=== PATIENT | female | born 1960 | race Caucasian/White ===

== ENCOUNTER 2020-01-09 14:00 | Outpatient (CLI) | payer OTHER, SELFPAY ==
--- NOTE | ~2020-01-09 | MM_ITS ---
EXAMINATION: MM screening [facility] w [facility] HISTORY: Screening mammogram TECHNIQUE: Craniocaudal and mediolateral oblique 3-D tomosynthesis images were obtained and synthetic 2-D images were generated. CAD analysis was submitted and interpreted. COMPARISON: 12/04/2018, 11/17/2017, 10/25/2016 bilateral digital screening mammogram examinations BREAST PARENCHYMAL COMPOSITION: There are scattered areas of fibroglandular density. FINDINGS: There is no evidence of suspicious mass, calcification, or architectural distortion to sugg est malignancy in either breast. There has been no suspicious interval change. IMPRESSION: 1. No mammographic evidence of malignancy. 2. Recommend routine screening mammography in one year. BI-RADS Category 1: Negative Reviewed, dictated and finalized at location A.
== END 2020-01-09 14:01 | disposition home or self-care (01) ==
LOC: ANHIMG 14:03
PROVIDERS: PCP Family Medicine; Visit Provider Family Medicine
DX: Z12.31 Encounter for screening mammogram for malignant neoplasm of breast (principal)
CPT/HCPCS: 77063; 77067

== ENCOUNTER 2021-02-12 08:26 | Outpatient (CLI) | payer OTHER, SELFPAY ==
--- NOTE | ~2021-02-12 | MM_ITS ---
EXAMINATION: MM screening [facility] BI w baltazar HISTORY: Screening mammogram TECHNIQUE: Craniocaudal and mediolateral oblique 3-D tomosynthesis images were obtained and synthetic 2-D images were generated. CAD analysis was submitted and interpreted. COMPARISON: 01/09/2020, 12/04/2018, 11/17/2017 BREAST PARENCHYMAL COMPOSITION: There are scattered areas of fibroglandular density. FINDINGS: There is no evidence of suspicious mass, calcification, or architectural distortion to sugg est malignancy in either breast. There has been no suspicious interval change. IMPRESSION: 1. No mammographic evidence of malignancy. 2. Recommend routine screening mammography in one year. BI-RADS Category 1: Negative Reviewed, dictated and finalized at location A.
== END 2021-02-12 08:27 | disposition home or self-care (01) ==
LOC: ANHIMG 08:29
PROVIDERS: PCP Family Medicine; Visit Provider Family Medicine
DX: Z12.31 Encounter for screening mammogram for malignant neoplasm of breast (principal)
CPT/HCPCS: 77063; 77067

== ENCOUNTER 2022-05-10 10:04 | Outpatient (CLI) | payer OTHER, SELFPAY ==
--- NOTE | ~2022-05-10 | MM_ITS ---
EXAMINATION: MM screening [facility] BI w baltazar HISTORY: Screening mammogram TECHNIQUE: Craniocaudal and mediolateral oblique 3-D tomosynthesis images were obtained and synthetic 2-D images were generated. CAD analysis was submitted and interpreted. COMPARISON: 02/12/2021, 01/09/2020, 12/04/2018 BREAST PARENCHYMAL COMPOSITION: There are scattered areas of fibroglandular density. FINDINGS: There is no suspicious mass, calcification, or architectural distortion to suggest malignan cy in either breast. There has been no suspicious interval change. IMPRESSION: 1. No mammographic evidence of malignancy. 2. Recommend routine screening mammography in one year. BI-RADS Category 1: Negative Reviewed, dictated and finalized at location A.
== END 2022-05-10 10:05 | disposition home or self-care (01) ==
LOC: ANHIMG 10:06
PROVIDERS: PCP Family Medicine; Visit Provider Physician Assistant
DX: Z12.31 Encounter for screening mammogram for malignant neoplasm of breast (principal)
CPT/HCPCS: 77063; 77067

== ENCOUNTER 2022-07-23 00:42 | Day surgery (SDC) | payer OTHER, SELFPAY ==
[2022-07-16 14:05] VITALS: BMI 28.9
[2022-07-23 09:57] VITALS: BP 147/77; PULSE 87; RESP 16; TEMP 36; O2SAT 100
[2022-07-23] MEDS: LACTATED RINGERS 1,000 ML 150 ML IV CONT (10:00)
--- NOTE | 2022-07-23 10:39 | PM.HPGS ---
History of Present Illness History of Present Illness Consent: Risks, benefits, and alternatives have been discussed and questions answered. Patient agrees to proceed with procedure. Chief complaint: Positive Cologuard Narrative: Elaine Patterson is a 61 year old female Presents for screening colonoscopy. Patient's current weight appetite bowel movements are normal. Patient denies abdominal pain. She has had bleeding. Family history noncontributory. Recent Cologuard test found to be positive. For this reason patient referred for screening colonoscopy. Previous colonoscopy 10 years ago was unremarkable. Review of Systems Review of Systems: Review of systems noncontributory. [facility] Past Medical History Medical History Mild intermittent asthma, uncomplicated Photodermatitis Family History Family History Mother Family history of thyroid disease Sibling Depression Father Family history of rheumatoid arthritis, Onset Age: 79 Grandparent Cerebrovascular accident Family history of lung cancer Social History Social History (Updated 06/17/22 @ 10:18 by Paris Ware CMA) Smoking status: Never smoker Alcohol intake: current Drinks per week: 5 Substance use: never Substance use type: does not use Living arrangements: with family Spiritual care concerns: No Meds Home Medications and Allergies Home Medications Medication Instructions Recorded Confirmed Type cetirizine 10 mg capsule (Zyrtec) 10 mg PO DAILY PRN Pain 06/10/21 07/23/22 History estradiol 0.5 mg tablet See Rx Instructions .Route 08/12/21 07/23/22 Rx .COMPLEX #90 tabs levothyroxine 150 mcg tablet See Rx Instructions .Route 10/21/21 07/23/22 Rx (Synthroid) .COMPLEX #90 tabs meloxicam 15 mg tablet See Rx Instructions .Route 05/04/22 07/23/22 Rx .COMPLEX #90 tabs Allergies Allergy/AdvReac Type Severity Reaction Status Date / Time cat dander Allergy Unknown Sneezing Verified 07/23/22 09:55 Sulfa (Sulfonamide Allergy Unknown reaction Verified 07/23/22 09:55 Antibiotics) Vital Signs Vital Signs - 24 hr 07/23/22 09:57 Temperature 96.8 F L Pulse Rate 87 Respiratory Rate 16 Blood Pressure 147/77 H Pulse Oximetry 100 Oxygen Delivery Room Air Exam Narrative: Physical exam reveals patient to be alert. Vital signs stable. HEENT exam is unremarkable. Patient is anicteric. Lungs are clear to auscultation and percussion. Heart is without murmur or extra sounds. Abdomen bowel sounds are present soft nontender with no organomegaly. Digital external rectal exam is normal. Assessment and Plan Assessment and plan (1) Positive colorectal cancer screening using Cologuard test: Code(s): R19.5 - Other fecal abnormalities Status: Acute Assessment and Plan: Patient presents for screening colonoscopy because of positive Cologuard test. Further recommendations may be given after endoscopy.
[2022-07-23 11:05] VITALS: BP 109/63; PULSE 79; RESP 19; O2SAT 98
[2022-07-23 11:15] VITALS: BP 107/69; PULSE 84; RESP 24; O2SAT 99
[2022-07-23 11:25] VITALS: BP 120/73; PULSE 82; RESP 20; O2SAT 99
== END 2022-07-23 11:30 | disposition home or self-care (01) ==
PROVIDERS: PCP Family Medicine; Visit Provider Internal Medicine Gastroenterology
PROC: 0DJD8ZZ Inspection of Lower Intestinal Tract, Via Natural or Artificial Opening Endoscopic (ICD-10-PCS; CPT 45378; principal; 2022-07-23 11:00)
DX: R19.5 Other fecal abnormalities (principal)
CPT/HCPCS: 45378; J2704; J7120

== ENCOUNTER → 2023-07-20 11:30 | Outpatient (CLI) | payer OTHER, SELFPAY ==
--- NOTE | ~2023-07-20 | MM_ITS ---
EXAMINATION: MM screening [facility] w [facility] HISTORY: Screening TECHNIQUE: Craniocaudal and mediolateral oblique 3-D tomosynthesis images were obtained and synthetic 2-D images were generated. CAD analysis was submitted and interpreted. COMPARISON: Comparison to multiple prior studies sequentially, with oldest reviewed study dated 10/29. BREAST PARENCHYMAL COMPOSITION: Breast composed of scattered areas of fibroglandular density FINDINGS: There is no evidence of suspicious mass, calcification, or architectural distortion to sugg est malignancy in either breast. There has been no suspicious interval change. IMPRESSION: 1. No mammographic evidence of malignancy. 2. Recommend routine screening mammography in one year. BI-RADS Category 1: Negative Reviewed, dictated and finalized at location A. [employer]
== END ==
PROVIDERS: PCP Physician Assistant; Visit Provider Physician Assistant
DX: Z12.31 Encounter for screening mammogram for malignant neoplasm of breast (principal); Z78.0 Asymptomatic menopausal state
CPT/HCPCS: 77063; 77067